=== PATIENT | female | born 1985 | race Caucasian/White ===

== ENCOUNTER 2019-05-19 22:00 | Inpatient (IN) ==
--- NOTE | 2019-05-19 22:52 | History & Physical Report ---
Date of Service May 19, 2019 Assessment & Plan (1) Full-term PROM with onset of labor within 24 hours of rupture: admit, iv, labs. fhts categ 1. will plan pitocin aug or induction if needed if no labor in 4-6 from prom. given initial bp will check additional labs but pt currently denies fitzgerald, visual change, ruq pain, no n/v. History of Present Illness Chief Complaint: leaking fluid, clear and pink, since 715pm today Primary Care Provider: NO PCP 34yo at 39wk jacob presents to L&D with above cc. When she called she noted q 10min ctx and recommended that she come in for evaluation. Now reports more frequent ctx but not painful. Still leaking clear to pink tinged fluid. pnc c/b 1. obesity, efw at [id number]%, then repeat efw at 36wks 46% pnl rh pos, ri, gbs neg obh: sab x 1 gynh: nl paps, no stds pmh: obesity, h/o migraines psh: rotator cuff surgery sh: no tob/etoh/drugs fh: no kevyn anom or mr Allergies Allergy/AdvReac Type Severity Reaction Status Date / Time Latex, Natural Rubber Allergy Rash Verified 05/19/19 22:55 levofloxacin [From Levaquin] Allergy Rash Verified 05/19/19 22:55 promethazine [From Phenergan] Allergy Rash Verified 05/19/19 22:55 Home Medications Home Medications Medication Instructions Recorded Confirmed Type prenat.vits,murali,eee-rtne-yqups 1 tab PO DAILY 10/26/18 05/15/19 History Patient History Social History Preferred Language: French Communication Ability: Effective Beliefs That Will Affect Care: None marital status: Current Living Situation: Spouse Other Information That Helps Us Care for You: No Feels Safe at Home: Yes Safety Concerns: Feels Safe At This Time Smoking Status: Never smoker Hx Alcohol Use: No Hx Substance Use: No Review of Systems All systems reviewed & are unremarkable except as noted in HPI & below no problem reported no abdominal pain, no nausea and no vomiting + problem reported (swelling) no headache(s) Physical Exam Constitutional: WD/WN, vitals as above Respiratory: normal respiratory effort, lungs clear to auscultation Cardiovascular: Rate/Rhythm: regular rate and regular rhythm Gastrointestinal (Abdomen): Percussion/Palpation: abdomen soft (gravid efw 7- 8#); abdomen nontender Musculoskeletal: +2 edema Neurologic: grossly normal Psychiatric: A+Ox3, euthymic affect Genitourinary: Manual OB Exam: + cervical dilation (2), + cervical effacement 80%, + station -1 and + amniotic fluid (Gross SROM) clear and nitrazine positive OB Exam Monitor Tracing: + external FHT monitor used (145 mod variability), + external uterine monitor used (q5), + category I and + normal FHT variability Results & Data Vital Signs (Past 12 Hours) Vital Signs Temp Pulse Resp BP 05/19/19 22:16 88 151/94 H 05/19/19 22:11 99.0 F 88 20 143/88 H 05/19/19 22:10 90 143/88 H Coding Level of Care Code None Diagnoses Full-term PROM with onset of labor within 24 hours of rupture O42.02
[2019-05-19] MEDS ORDERED: OXYTOCIN 30 UNITS/500 ML BAG IV PRN ×2 (23:01)
[2019-05-19 23:20] LABS: Hematocrit (blood only) 39.1 % (37-47); Hemoglobin 13.2 g/dL (12.0-16.0); Mean Corpuscular Hemoglobin 29.9 pg (25-34); Mean Corpuscular Volume 88.7 fL (80-100); Mean Platelet Volume 11.9 fL (7.4-10.4); Platelet Count 161 K/uL (130-400); RDW Coefficient of Variation 13.9 % (11.5-14.5); RDW Standard Deviation 45.2 fL (36.4-46.3); Red Blood Count 4.41 M/uL (4.2-5.4); White Blood Count 11.14 K/uL (4.8-10.8)
[2019-05-19 23:26] LABS: Mean Corpuscular Hgb Conc 33.8 g/dL (32-36)
[2019-05-19 23:38] LABS: Alanine Aminotransferase 18 U/L (12-78); Albumin Level 2.6 gm/dl (3.4-5.0); Aspartate Aminotransferase 19 U/L (15-37); BUN Creatinine Ratio 18.9 (10-20); Bilirubin Direct < 0.1 mg/dl (0-0.2); Blood Urea Nitrogen 17 mg/dl (7-18); Calcium 9.3 mg/dl (8.5-10.1); Carbon Dioxide 23 mmol/L (21-32); Chloride 110 mmol/L (98-107); Creatinine Clr Calc Pharmacy 103.1 ml/min; Est GFR (African American) 99.4; Est GFR (Non-African American) 85.7; Glucose 95 mg/dl (70-99); Potassium 3.8 mmol/L (3.5-5.1); Sodium 140 mmol/L (136-145)
[2019-05-19 23:40] LABS: Albumin Globulin Ratio 0.6 (0.9-2); Alkaline Phosphatase 112 U/L (45-117); Bilirubin,Total 0.2 mg/dl (0.2-1); Globulin 4.2 gm/dl (2.5-4.0); Total Protein 6.8 gm/dl (6.4-8.2)
[2019-05-20] MEDS ORDERED: LABETALOL HCL IV 5 MG/ML 20ML IV STA ×2 (00:47→01:52)
[2019-05-20] MEDS: LACTATED RINGER'S 1,000 ML IV PRN ×2 (00:59→20:59)
[2019-05-20 02:47] LABS: Creatinine Urine Random 65.4 mg/dl; Protein Creatinine Ratio Urine 0.5 (0-0.2); Total Protein Urine Random 32.1 mg/dl (0-11.9)
[2019-05-20] MEDS ORDERED: MAGNESIUM SULFATE 4GM / WTR 100 ML BAG IV ONE (02:54)
[2019-05-20] MEDS: MAGNESIUM SULFATE / WTR 40 GM/1,000 ML BAG IV SCH ×2 (03:28→20:07)
[2019-05-20] MEDS ORDERED: NALOXONE HCL 1 MG in SODIUM CHLORIDE 0.9% 1000ML 1,000 ML IV PRN ×2 (04:36→13:56)
[2019-05-20] MEDS ORDERED: DiphenhydrAMINE HCL 50 MG/ML VIAL IV PRN ×2 (04:36→13:56)
[2019-05-20] MEDS ORDERED: KETOROLAC 30 MG/ML VIAL IV PRN (04:36)
[2019-05-20] MEDS ORDERED: ePHEDrine sulfate 50 MG/ML AMP IV PRN ×2 (04:36→13:56)
[2019-05-20] MEDS ORDERED: NALOXONE HCL 0.08 MG in SYRINGE 1.8 ML IV PRN (04:36)
[2019-05-20] MEDS ORDERED: NALBUPHINE HCL INJ 10 MG/ML AMP IV PRN ×2 (04:36→13:56)
[2019-05-20] MEDS ORDERED: ONDANSETRON INJ 2 MG/ML 2 ML VIAL IV PRN ×2 (04:36→13:56)
[2019-05-20] MEDS ORDERED: NALOXONE HCL 0.4 MG/1 ML VIAL/CARP IV PRN ×2 (04:36→13:56)
[2019-05-20] MEDS ORDERED: MoRPHine SULFATE PF 1 MG/ML 10 ML AMP/VIAL EPI ONE (04:36)
[2019-05-20] MEDS ORDERED: MoRPHine SULFATE 2 MG/ML CARP IV PRN (04:36)
[2019-05-20] MEDS ORDERED: LACTATED RINGER'S 500 ML IV PRN (04:36)
[2019-05-20] MEDS ORDERED: DC INTRASPINAL MORPHINE SCH (04:45)
[2019-05-20] MEDS ORDERED: NO NARCOTICS OR SEDATIVES SCH (04:45)
[2019-05-20] MEDS ORDERED: SODIUM CHLORIDE 0.9% 1000ML 1,000 ML IV SCH (04:45)
--- NOTE | 2019-05-20 08:46 | Labor Progress Brief Note ---
Date of Service May 20, 2019 Subjective Reason For Note: Routine Evaluation denies fitzgerald or visual change, no ruq pain, no epig pain. Assessment & Plan (1) Severe preeclampsia: (2) Full-term PROM with onset of labor within 24 hours of rupture: good cx change. cont magnesium, fhts categ 1. aware Dr. Ballard is taking over care. Physical Exam Constitutional: WD/WN, vitals as above Neurologic: grossly normal. no clonus, dtrs +2 Psychiatric: A+Ox3, euthymic affect Genitourinary: OB Exam Abdomen: + estimated weight (7-8#) Manual OB Exam: + cervical dilation 7 cm, + cervical effacement 100%, + station 0 and + amniotic fluid clear OB Exam Monitor Tracing: + external FHT monitor used (130 mod variability), + external uterine monitor used (q2-3), + category I and + normal FHT variability Results & Data Vital Signs (Past 12 Hours) Vital Signs Temp Pulse Resp BP Pulse Ox 05/20/19 08:39 105 H 98 05/20/19 08:34 104 H 97 05/20/19 08:32 98 H 160/80 H 05/20/19 08:29 99 H 97 05/20/19 08:24 95 H 97 05/20/19 08:19 96 H 97 05/20/19 08:18 100 H 159/83 H 05/20/19 08:14 99 H 97 05/20/19 08:09 108 H 99 05/20/19 08:04 108 H 98 05/20/19 08:03 100 H 168/80 H 05/20/19 08:00 18 05/20/19 07:59 88 98 05/20/19 07:54 102 H 98 05/20/19 07:49 104 H 98 05/20/19 07:48 94 H 148/79 H 05/20/19 07:44 88 98 05/20/19 07:39 102 H 97 05/20/19 07:34 108 H 144/67 H 97 05/20/19 07:29 103 H 97 05/20/19 07:24 97 H 98 05/20/19 07:19 104 H 98 05/20/19 07:18 103 H 174/81 H 05/20/19 07:14 105 H 98 05/20/19 07:09 103 H 97 05/20/19 07:04 105 H 97 05/20/19 07:02 100 H 158/75 H 05/20/19 06:59 97 H 98 05/20/19 06:54 93 H 98 05/20/19 06:49 94 H 97 05/20/19 06:47 100 H 164/82 H 05/20/19 06:44 96 H 97 05/20/19 06:39 100 H 97 05/20/19 06:34 100 H 98 05/20/19 06:32 98 H 166/86 H 05/20/19 06:29 97 H 98 05/20/19 06:24 91 H 97 05/20/19 06:19 98 H 96 05/20/19 06:18 101 H 159/86 H 05/20/19 06:14 96 H 97 05/20/19 06:09 103 H 99 05/20/19 06:04 104 H 97 05/20/19 06:02 96 H 18 167/83 H 05/20/19 05:59 95 H 98 05/20/19 05:54 96 H 97 05/20/19 05:49 107 H 97 05/20/19 05:48 99 H 165/90 H 05/20/19 05:44 94 H 97 05/20/19 05:39 96 H 97 05/20/19 05:34 99 H 99 05/20/19 05:32 93 H 160/74 H 05/20/19 05:29 97 H 99 05/20/19 05:24 103 H 98 05/20/19 05:19 98 H 97 05/20/19 05:17 99 H 157/74 H 05/20/19 05:14 97 H 97 05/20/19 05:09 99 H 97 05/20/19 05:04 89 98 05/20/19 05:02 98.1 F 100 H 18 162/76 H 05/20/19 04:59 104 H 97 05/20/19 04:54 92 H 97 05/20/19 04:49 90 97 05/20/19 04:48 91 H 173/83 H 05/20/19 04:44 94 H 98 05/20/19 04:39 91 H 98 05/20/19 04:34 99 H 98 05/20/19 04:32 100 H 148/72 H 05/20/19 04:29 88 97 05/20/19 04:24 96 H 97 05/20/19 04:19 98 H 97 05/20/19 04:17 97 H 156/74 H 05/20/19 04:14 100 H 98 05/20/19 04:09 95 H 96 05/20/19 04:04 90 98 05/20/19 04:03 103 H 18 160/78 H 05/20/19 03:59 85 98 05/20/19 03:54 87 98 05/20/19 03:49 100 H 97 05/20/19 03:47 96 H 154/76 H 05/20/19 03:44 98 H 98 05/20/19 03:39 97 H 98 05/20/19 03:34 104 H 96 05/20/19 03:33 96 H 156/75 H 05/20/19 03:29 97 H 97 05/20/19 03:24 97 H 98 05/20/19 03:19 97 H 96 05/20/19 03:17 96 H 160/74 H 05/20/19 03:14 87 98 05/20/19 03:09 84 98 05/20/19 03:07 18 05/20/19 03:04 92 H 187/79 H 98 05/20/19 02:59 85 100 05/20/19 02:54 97 H 98 05/20/19 02:49 95 H 98 05/20/19 02:44 79 98 05/20/19 02:42 98.4 F 94 H 18 151/80 H 05/20/19 02:39 80 98 05/20/19 02:38 94 H 161/76 H 05/20/19 02:34 99 H 188/83 H 99 05/20/19 02:29 81 98 05/20/19 02:27 90 149/72 H 05/20/19 02:24 100 H 166/76 H 99 05/20/19 02:19 94 H 99 05/20/19 02:17 99 H 146/77 H 05/20/19 02:14 80 99 05/20/19 02:09 96 H 178/77 H 99 05/20/19 02:04 91 H 100 05/20/19 01:59 88 176/84 H 100 05/20/19 01:58 80 199/98 H 05/20/19 01:54 80 100 05/20/19 01:52 81 169/77 H 05/20/19 01:49 82 100 05/20/19 01:48 90 175/81 H 05/20/19 01:44 77 100 05/20/19 01:42 92 H 168/80 H 05/20/19 01:40 87 176/89 H 05/20/19 01:39 87 100 05/20/19 01:28 86 179/92 H 05/20/19 01:25 89 100 05/20/19 01:23 88 165/83 H 05/20/19 01:20 80 100 05/20/19 01:18 81 143/83 H 05/20/19 01:15 81 100 05/20/19 01:13 84 152/73 H 05/20/19 01:10 82 100 05/20/19 01:07 93 H 156/80 H 05/20/19 01:05 85 100 05/20/19 01:02 84 168/87 H 05/20/19 01:00 79 100 05/20/19 00:58 98.1 F 79 18 181/88 H 05/20/19 00:55 88 100 05/20/19 00:52 82 169/84 H 05/20/19 00:46 83 174/88 H 05/20/19 00:41 86 181/99 H 05/19/19 23:30 85 159/81 H 05/19/19 23:29 98.6 F 75 18 168/89 H 05/19/19 22:16 88 151/94 H 05/19/19 22:11 99.0 F 88 20 143/88 H 05/19/19 22:10 90 143/88 H Coding Level of Care Code None Diagnoses Severe preeclampsia O14.10 Full-term PROM with onset of labor within 24 hours of rupture O42.02
--- NOTE | 2019-05-20 10:43 | Communication Note ---
Date of Service: May 20, 2019 Care discussed with Alma Bolaños, RN twice in last 30 min. Cervix unchanged on her exam so will now start pitocin. Patient agreeable. BP noted to be significantly elevated, and I asked that it be rechecked; now improved to below where treatment would be indicated, so no further labetalol at this time. Continue BP and symptom monitoring, magnesium, add pitocin for augmentation of labor, and continue without epidural at patient request.
--- NOTE | 2019-05-20 13:01 | Labor Progress Brief Note ---
Date of Service May 20, 2019 Subjective Tolerating contractions with breathing techniques. Continues to decline epidural. No DRUMMOND, RUQ pain or Vis changes, no worsening edema. Assessment & Plan (1) Severe preeclampsia: Patient, FOB and patient's mom counseled on findings of no cervical change and a displaceable presenting part. Expressed my concern for CPD, and reminded that I cannot guarantee vaginal delivery nor predict time of delivery. Discussed next steps are to continue to increase pitocin to achieve Q2min contractions, and if still no change in cervix, use IUPC to allow titration for adequate strength of contractions. If still no change after several hours of adequacy, would be recommended for . Reviewed that this may all take significant amount of time. Discussed that status is currently reassu ring, which allows for us to take the steps above, and that if status changes so would recommendations. Offered epidural and patient declines even with this understanding that there may be a long time yet of induction. Trimester: third trimester Qualified Code(s): O14.13 - Severe pre-eclampsia, third trimester Physical Exam Physical Exam: FHT Cat 1 [place] Q3-5 irreg Pit @ 5 Cervix 7/100/0 head displaceable upwards BP reviewed and ranges high-normal to severe HTN; I note the new 171/81 was taken during a contraction. Results & Data Vital Signs (Past 12 Hours) Vital Signs Temp Pulse Resp BP Pulse Ox 05/20/19 12:49 98 H 97 05/20/19 12:44 95 H 98 05/20/19 12:39 114 H 98 05/20/19 12:34 107 H 98 05/20/19 12:29 102 H 96 05/20/19 12:24 106 H 98 05/20/19 12:19 106 H 98 05/20/19 12:16 104 H 171/81 H 05/20/19 12:14 93 H 97 05/20/19 12:09 98 H 97 05/20/19 12:04 108 H 100 05/20/19 11:59 105 H 98 05/20/19 11:54 102 H 100 05/20/19 11:49 101 H 98 05/20/19 11:44 103 H 144/79 H 96 05/20/19 11:39 104 H 98 05/20/19 11:34 103 H 98 05/20/19 11:29 108 H 97 05/20/19 11:24 108 H 98 05/20/19 11:19 103 H 98 05/20/19 11:15 107 H 142/67 H 05/20/19 11:14 103 H 97 05/20/19 11:09 108 H 97 05/20/19 11:04 106 H 98 05/20/19 11:00 98.2 F 20 05/20/19 10:59 102 H 96 05/20/19 10:54 101 H 96 05/20/19 10:49 110 H 97 05/20/19 10:44 100 H 132/65 97 05/20/19 10:39 104 H 97 05/20/19 10:34 102 H 97 05/20/19 10:33 103 H 149/70 H 05/20/19 10:29 102 H 97 05/20/19 10:24 105 H 97 05/20/19 10:19 106 H 97 05/20/19 10:14 107 H 98 05/20/19 10:09 99 H 97 05/20/19 10:04 108 H 98 05/20/19 10:03 106 H 181/87 H 05/20/19 09:59 109 H 98 05/20/19 09:54 99 H 98 05/20/19 09:49 109 H 97 05/20/19 09:48 103 H 174/91 H 05/20/19 09:44 102 H 98 05/20/19 09:39 105 H 98 05/20/19 09:34 108 H 98 05/20/19 09:32 103 H 167/79 H 05/20/19 09:29 101 H 98 05/20/19 09:24 90 99 05/20/19 09:19 94 H 98 05/20/19 09:17 100 H 157/77 H 05/20/19 09:14 106 H 98 05/20/19 09:09 110 H 97 05/20/19 09:04 98 H 99 05/20/19 09:02 95 H 152/75 H 05/20/19 09:00 20 05/20/19 08:59 92 H 98 05/20/19 08:54 100 H 97 05/20/19 08:49 101 H 98 05/20/19 08:48 105 H 149/77 H 05/20/19 08:44 103 H 98 05/20/19 08:39 105 H 98 05/20/19 08:34 104 H 97 05/20/19 08:32 98 H 160/80 H 05/20/19 08:29 99 H 97 05/20/19 08:24 95 H 97 05/20/19 08:19 96 H 97 05/20/19 08:18 100 H 159/83 H 05/20/19 08:14 99 H 97 05/20/19 08:09 108 H 99 05/20/19 08:04 108 H 98 05/20/19 08:03 100 H 168/80 H 05/20/19 08:00 18 05/20/19 07:59 88 98 05/20/19 07:54 102 H 98 05/20/19 07:49 104 H 98 05/20/19 07:48 94 H 148/79 H 05/20/19 07:44 88 98 05/20/19 07:39 102 H 97 05/20/19 07:34 108 H 144/67 H 97 05/20/19 07:29 103 H 97 05/20/19 07:24 97 H 98 05/20/19 07:19 104 H 98 05/20/19 07:18 103 H 174/81 H 05/20/19 07:14 105 H 98 05/20/19 07:09 103 H 97 05/20/19 07:04 105 H 97 05/20/19 07:02 100 H 158/75 H 05/20/19 06:59 97 H 98 05/20/19 06:54 93 H 98 05/20/19 06:49 94 H 97 05/20/19 06:47 100 H 164/82 H 05/20/19 06:44 96 H 97 05/20/19 06:39 100 H 97 05/20/19 06:34 100 H 98 05/20/19 06:32 98 H 166/86 H 05/20/19 06:29 97 H 98 05/20/19 06:24 91 H 97 05/20/19 06:19 98 H 96 05/20/19 06:18 101 H 159/86 H 05/20/19 06:14 96 H 97 05/20/19 06:09 103 H 99 05/20/19 06:04 104 H 97 05/20/19 06:02 96 H 18 167/83 H 05/20/19 05:59 95 H 98 05/20/19 05:54 96 H 97 05/20/19 05:49 107 H 97 05/20/19 05:48 99 H 165/90 H 05/20/19 05:44 94 H 97 05/20/19 05:39 96 H 97 05/20/19 05:34 99 H 99 05/20/19 05:32 93 H 160/74 H 05/20/19 05:29 97 H 99 05/20/19 05:24 103 H 98 05/20/19 05:19 98 H 97 05/20/19 05:17 99 H 157/74 H 05/20/19 05:14 97 H 97 05/20/19 05:09 99 H 97 05/20/19 05:04 89 98 05/20/19 05:02 98.1 F 100 H 18 162/76 H 05/20/19 04:59 104 H 97 05/20/19 04:54 92 H 97 05/20/19 04:49 90 97 05/20/19 04:48 91 H 173/83 H 05/20/19 04:44 94 H 98 05/20/19 04:39 91 H 98 05/20/19 04:34 99 H 98 05/20/19 04:32 100 H 148/72 H 05/20/19 04:29 88 97 05/20/19 04:24 96 H 97 05/20/19 04:19 98 H 97 05/20/19 04:17 97 H 156/74 H 05/20/19 04:14 100 H 98 05/20/19 04:09 95 H 96 05/20/19 04:04 90 98 05/20/19 04:03 103 H 18 160/78 H 05/20/19 03:59 85 98 05/20/19 03:54 87 98 05/20/19 03:49 100 H 97 05/20/19 03:47 96 H 154/76 H 05/20/19 03:44 98 H 98 05/20/19 03:39 97 H 98 05/20/19 03:34 104 H 96 05/20/19 03:33 96 H 156/75 H 05/20/19 03:29 97 H 97 05/20/19 03:24 97 H 98 05/20/19 03:19 97 H 96 05/20/19 03:17 96 H 160/74 H 05/20/19 03:14 87 98 05/20/19 03:09 84 98 05/20/19 03:07 18 05/20/19 03:04 92 H 187/79 H 98 05/20/19 02:59 85 100 05/20/19 02:54 97 H 98 05/20/19 02:49 95 H 98 05/20/19 02:44 79 98 05/20/19 02:42 98.4 F 94 H 18 151/80 H 05/20/19 02:39 80 98 05/20/19 02:38 94 H 161/76 H 05/20/19 02:34 99 H 188/83 H 99 05/20/19 02:29 81 98 05/20/19 02:27 90 149/72 H 05/20/19 02:24 100 H 166/76 H 99 05/20/19 02:19 94 H 99 05/20/19 02:17 99 H 146/77 H 05/20/19 02:14 80 99 05/20/19 02:09 96 H 178/77 H 99 05/20/19 02:04 91 H 100 05/20/19 01:59 88 176/84 H 100 05/20/19 01:58 80 199/98 H 05/20/19 01:54 80 100 05/20/19 01:52 81 169/77 H 05/20/19 01:49 82 100 05/20/19 01:48 90 175/81 H 05/20/19 01:44 77 100 05/20/19 01:42 92 H 168/80 H 05/20/19 01:40 87 176/89 H 05/20/19 01:39 87 100 05/20/19 01:28 86 179/92 H 05/20/19 01:25 89 100 05/20/19 01:23 88 165/83 H 05/20/19 01:20 80 100 05/20/19 01:18 81 143/83 H 05/20/19 01:15 81 100 05/20/19 01:13 84 152/73 H 05/20/19 01:10 82 100 05/20/19 01:07 93 H 156/80 H 05/20/19 01:05 85 100 05/20/19 01:02 84 168/87 H 05/20/19 01:00 79 100 05/20/19 00:58 98.1 F 79 18 181/88 H Laboratory Results Laboratory Results - last 24 hr 05/19/19 05/19/19 05/20/19 23:10 23:10 02:00 WBC 11.14 H RBC 4.41 Hgb 13.2 Hct 39.1 MCV 88.7 MCH 29.9 MCHC 33.8 RDW Std Deviation 45.2 RDW Coeff of Vickie 13.9 Plt Count 161 MPV 11.9 H Sodium 140 Potassium 3.8 Chloride 110 H Carbon Dioxide 23 Anion Gap 7.0 BUN 17 Creatinine 0.88 Est Cr Clr Drug Dosing 103.1 Est GFR ( Amer) 99.4 Est GFR (Non-Af Amer) 85.7 BUN/Creatinine Ratio 18.9 Glucose 95 Calcium 9.3 Total Bilirubin 0.2 Direct Bilirubin < 0.1 AST 19 ALT 18 Alkaline Phosphatase 112 Total Protein 6.8 Albumin 2.6 L Globulin 4.2 H Albumin/Globulin Ratio 0.6 L Ur Random Creatinine 65.4 U Random Total Protein 32.1 H Protein/Creatinin Ratio 0.5 H Coding Level of Care Code None Diagnoses Severe preeclampsia O14.13 Trimester: third trimester
[2019-05-20] MEDS ORDERED: ACETAMINOPHEN 650 MG SUPP PR STA ×2 (13:14→18:23)
--- NOTE | 2019-05-20 13:15 | Communication Note ---
Date of Service: May 20, 2019 Notified by ELIZABETH Bolaños that patient now has c/o mild headache that is new. Ordered 650mg tylenol, with rectal route to avoid PO solids in case we end up with a in the near future. She is also now interested in epidural which is OK to go ahead and provide.
[2019-05-20] MEDS ORDERED: fentaNYL 2MCG/ML ROPIV 1.25MG/ML 100 ML BAG EPI ONE (13:19)
[2019-05-20] MEDS ORDERED: BUPIVACAINE 0.25% 30 ML VIAL ONE (13:19)
[2019-05-20] MEDS ORDERED: fentaNYL citrate 100 MCG/2 ML VIAL ONE ×2 (13:19→20:50)
[2019-05-20] MEDS ORDERED: ePHEDrine sulfate 50 MG/ML AMP ONE (13:19)
--- NOTE | 2019-05-20 13:55 | Anesthesiology Consultation ---
Date of Service May 20, 2019 Assessment & Plan (1) Encounter for pre-operative examination: Chart Review Chart Review: Acceptable Risk for Labor Epidural Consults Requested none ASA ASA3 Proposed Anesthesia Anesthesia Type: Labor Epidural Risk / Benefits Reviewed With: PT / POA / Parent / Guardian, Accepts Plan and Informed Consent Obtained History Height/Weight Height: 5 ft 2 in Weight: 106.141 kg Allergies Allergy/AdvReac Type Severity Reaction Status Date / Time Latex, Natural Rubber Allergy Rash Verified 05/19/19 22:55 levofloxacin [From Levaquin] Allergy Rash Verified 05/19/19 22:55 promethazine [From Phenergan] Allergy Rash Verified 05/19/19 22:55 Medications Home Medications Medication Instructions Recorded Confirmed Last Taken prenat.vits,murali,joq-dvor-vahrw 1 tab PO DAILY 10/26/18 05/19/19 05/18/19 08:00 Active Medications Generic Name Dose Route Start Last Admin Trade Name Freq PRN Reason Stop Dose Admin Lactated Ringer's 1,000 mls @ 125 mls/hr 05/19/19 23:01 05/20/19 07:06 Lr IV 05/21/19 23:00 75 mls/hr .Q8H PRN Infusion L&D Protocol Protocol Oxytocin 30 units in 500 mls @ 7 mls/hr 05/19/19 23:01 05/20/19 13:33 Pitocin IV 05/21/19 23:00 0.54 units/hr .Q24H PRN 9 mls/hr Labor Induction/Augmentation Titration Protocol 0.42 UNITS/HR Magnesium Sulfate 40 gm in 1,000 mls @ 50 mls/hr 05/20/19 03:00 05/20/19 07:06 Magnesium Sulfate / Wtr IV 06/19/19 02:59 50 mls/hr .Q20H NIGEL Infusion Past Medical History Medical History History of anemia History of miscarriage, currently History of varicella Hx of migraines Exercise / Class Metabolic Activity II 4-5 Yardwork/Stairs/Walk up hill Past Family History Family History Grandmother (Maternal) Hypertension Breast cancer Grandfather (Maternal) Hypertension Grandmother (Paternal) Breast cancer Past Surgical History Surgical History S/P rotator cuff repair S/P tonsillectomy Past Anesthesia History No Hx of Anesthesia Complications and No Family Hx of Anesthesia Complications History of PONV No Hx of PONV and No Hx of Motion Sickness Social History Smoking Status: Never smoker Hx Alcohol Use: No Hx Substance Use: No substance use type: does not use Physical Exam Vital Signs Last Vital Signs Temp 98.2 F 05/20/19 11:00 Pulse 114 H 05/20/19 13:49 Resp 20 05/20/19 11:00 BP 145/80 H 05/20/19 13:44 Pulse Ox 98 05/20/19 13:49 ENMT Mouth: no dentition abnormality Thyromental Distance: > or= 3.5 Finger Breadths Mallampati Class: II Neck normal visual inspection Respiratory normal respiratory effort Auscultation: lungs clear to auscultation bilaterally Cardiovascular Rate/Rhythm: regular rate and regular rhythm Testing Laboratory Results 05/19/19 23:10 05/19/19 23:10
[2019-05-20] MEDS ORDERED: fentaNYL 2MCG/ML ROPIV 1.25MG/ML 100 ML BAG EPI PRN (13:56)
--- NOTE | 2019-05-20 16:44 | Labor Progress Brief Note ---
Date of Service May 20, 2019 Subjective Comfortable with epidural Physical Exam Physical Exam: FHT Cat 2 with reassuring baseline and variability, occ variable / late decels with contractions. These were noted beginning after epidural when average BP dropped significantly. However, +accels and +scalp stim response with accels during cervical exam. [place] irregular and coupled. Cvx 9/100/0 with some molding now reaching to +1 Bloody show noted. Pit just increased to 15. Results & Data Vital Signs (Past 12 Hours) Vital Signs Temp Pulse Resp BP Pulse Ox 05/20/19 16:39 104 H 96 05/20/19 16:34 109 H 98 05/20/19 16:29 98 H 110/53 L 96 05/20/19 16:24 98 H 96 05/20/19 16:19 98 H 96 05/20/19 16:14 103 H 112/57 L 97 05/20/19 16:09 103 H 98 05/20/19 16:04 102 H 98 05/20/19 15:59 105 H 16 110/55 L 98 05/20/19 15:54 102 H 96 05/20/19 15:49 101 H 96 05/20/19 15:45 102 H 115/54 L 05/20/19 15:44 100 H 98 05/20/19 15:39 107 H 98 05/20/19 15:34 104 H 98 05/20/19 15:29 107 H 134/63 97 05/20/19 15:24 107 H 98 05/20/19 15:19 103 H 98 05/20/19 15:14 99 H 133/63 98 05/20/19 15:09 101 H 98 05/20/19 15:04 101 H 98 05/20/19 15:02 98.8 F 103 H 16 82 L 05/20/19 14:59 102 H 130/59 L 98 05/20/19 14:55 102 H 131/60 05/20/19 14:54 100 H 99 05/20/19 14:49 102 H 133/60 99 05/20/19 14:44 105 H 125/58 L 99 05/20/19 14:39 107 H 121/58 L 99 05/20/19 14:34 106 H 98 05/20/19 14:33 110 H 119/57 L 05/20/19 14:31 110 H 100/57 L 02/22/20 14:29 110 H 113/56 L 98 05/20/19 14:27 112 H 105/54 L 05/20/19 14:25 111 H 103/54 L 05/20/19 14:24 112 H 98 05/20/19 14:23 117 H 109/54 L 05/20/19 14:20 117 H 119/55 L 05/20/19 14:19 116 H 95/48 L 97 05/20/19 14:17 118 H 99/61 L 05/20/19 14:15 111 H 157/73 H 05/20/19 14:14 109 H 98 05/20/19 14:13 112 H 141/65 H 05/20/19 14:09 116 H 99 05/20/19 14:04 101 H 99 05/20/19 14:03 110 H 173/79 H 05/20/19 13:59 110 H 98 05/20/19 13:54 96 H 98 05/20/19 13:49 114 H 98 05/20/19 13:44 108 H 145/80 H 96 05/20/19 13:39 103 H 98 05/20/19 13:34 102 H 98 05/20/19 13:29 108 H 97 05/20/19 13:24 109 H 99 05/20/19 13:19 95 H 98 05/20/19 13:16 108 H 163/81 H 05/20/19 13:14 107 H 97 05/20/19 13:09 108 H 97 05/20/19 13:04 100 H 97 05/20/19 12:59 111 H 97 05/20/19 12:54 113 H 96 05/20/19 12:49 98 H 97 05/20/19 12:44 95 H 98 05/20/19 12:39 114 H 98 05/20/19 12:34 107 H 98 05/20/19 12:29 102 H 96 05/20/19 12:24 106 H 98 05/20/19 12:19 106 H 98 05/20/19 12:16 104 H 171/81 H 05/20/19 12:14 93 H 97 05/20/19 12:09 98 H 97 05/20/19 12:04 108 H 100 05/20/19 11:59 105 H 98 05/20/19 11:54 102 H 100 05/20/19 11:49 101 H 98 05/20/19 11:44 103 H 144/79 H 96 05/20/19 11:39 104 H 98 05/20/19 11:34 103 H 98 05/20/19 11:29 108 H 97 05/20/19 11:24 108 H 98 05/20/19 11:19 103 H 98 05/20/19 11:15 107 H 142/67 H 05/20/19 11:14 103 H 97 05/20/19 11:09 108 H 97 05/20/19 11:04 106 H 98 05/20/19 11:00 98.2 F 20 05/20/19 10:59 102 H 96 05/20/19 10:54 101 H 96 05/20/19 10:49 110 H 97 05/20/19 10:44 100 H 132/65 97 05/20/19 10:39 104 H 97 05/20/19 10:34 102 H 97 05/20/19 10:33 103 H 149/70 H 05/20/19 10:29 102 H 97 05/20/19 10:24 105 H 97 05/20/19 10:19 106 H 97 05/20/19 10:14 107 H 98 05/20/19 10:09 99 H 97 05/20/19 10:04 108 H 98 05/20/19 10:03 106 H 181/87 H 05/20/19 09:59 109 H 98 05/20/19 09:54 99 H 98 05/20/19 09:49 109 H 97 05/20/19 09:48 103 H 174/91 H 05/20/19 09:44 102 H 98 05/20/19 09:39 105 H 98 05/20/19 09:34 108 H 98 05/20/19 09:32 103 H 167/79 H 05/20/19 09:29 101 H 98 05/20/19 09:24 90 99 05/20/19 09:19 94 H 98 05/20/19 09:17 100 H 157/77 H 05/20/19 09:14 106 H 98 05/20/19 09:09 110 H 97 05/20/19 09:04 98 H 99 05/20/19 09:02 95 H 152/75 H 05/20/19 09:00 20 05/20/19 08:59 92 H 98 05/20/19 08:54 100 H 97 05/20/19 08:49 101 H 98 05/20/19 08:48 105 H 149/77 H 05/20/19 08:44 103 H 98 05/20/19 08:39 105 H 98 05/20/19 08:34 104 H 97 05/20/19 08:32 98 H 160/80 H 05/20/19 08:29 99 H 97 05/20/19 08:24 95 H 97 05/20/19 08:19 96 H 97 05/20/19 08:18 100 H 159/83 H 05/20/19 08:14 99 H 97 05/20/19 08:09 108 H 99 05/20/19 08:04 108 H 98 05/20/19 08:03 100 H 168/80 H 05/20/19 08:00 18 05/20/19 07:59 88 98 05/20/19 07:54 102 H 98 05/20/19 07:49 104 H 98 05/20/19 07:48 94 H 148/79 H 05/20/19 07:44 88 98 05/20/19 07:39 102 H 97 05/20/19 07:34 108 H 144/67 H 97 05/20/19 07:29 103 H 97 05/20/19 07:24 97 H 98 05/20/19 07:19 104 H 98 05/20/19 07:18 103 H 174/81 H 05/20/19 07:14 105 H 98 05/20/19 07:09 103 H 97 05/20/19 07:04 105 H 97 05/20/19 07:02 100 H 158/75 H 05/20/19 06:59 97 H 98 05/20/19 06:54 93 H 98 05/20/19 06:49 94 H 97 05/20/19 06:47 100 H 164/82 H 05/20/19 06:44 96 H 97 05/20/19 06:39 100 H 97 05/20/19 06:34 100 H 98 05/20/19 06:32 98 H 166/86 H 05/20/19 06:29 97 H 98 05/20/19 06:24 91 H 97 05/20/19 06:19 98 H 96 05/20/19 06:18 101 H 159/86 H 05/20/19 06:14 96 H 97 05/20/19 06:09 103 H 99 05/20/19 06:04 104 H 97 05/20/19 06:02 96 H 18 167/83 H 05/20/19 05:59 95 H 98 05/20/19 05:54 96 H 97 05/20/19 05:49 107 H 97 05/20/19 05:48 99 H 165/90 H 05/20/19 05:44 94 H 97 05/20/19 05:39 96 H 97 05/20/19 05:34 99 H 99 05/20/19 05:32 93 H 160/74 H 05/20/19 05:29 97 H 99 05/20/19 05:24 103 H 98 05/20/19 05:19 98 H 97 05/20/19 05:17 99 H 157/74 H 05/20/19 05:14 97 H 97 05/20/19 05:09 99 H 97 05/20/19 05:04 89 98 05/20/19 05:02 98.1 F 100 H 18 162/76 H 05/20/19 04:59 104 H 97 05/20/19 04:54 92 H 97 05/20/19 04:49 90 97 05/20/19 04:48 91 H 173/83 H 05/20/19 04:44 94 H 98 Supervising Physician Co-Signing Physician Notes Discussed there is some cervical change. molding present. FHT monitored closely, with reassuring scalp stim obtained. Discussed with patient and will continue augmentation and attempt towards vaginal delivery at this time. Coding Level of Care Code None
--- NOTE | 2019-05-20 18:42 | Labor Progress Brief Note ---
Date of Service May 20, 2019 Subjective Some pressure during contractions Assessment & Plan (1) Severe preeclampsia: Continue Mag. Mild DRUMMOND recurred and tylenol given again. Trimester: third trimester Qualified Code(s): O14.13 - Severe pre-eclampsia, third trimester (2) Full-term PROM with onset of labor within 24 hours of rupture: Begin second stage Physical Exam Physical Exam: 10/100/+1 FHT Cat 2 with normal baseline, mod monika, +acc + variable decels with ctx [place] Q3-4 Pit @ 19 Test push done with and moved baby well Results & Data Vital Signs (Past 12 Hours) Vital Signs Temp Pulse Resp BP Pulse Ox 05/20/19 18:34 102 H 98 05/20/19 18:30 103 H 160/77 H 05/20/19 18:29 104 H 98 05/20/19 18:24 103 H 98 05/20/19 18:19 101 H 98 05/20/19 18:14 101 H 141/67 H 99 05/20/19 18:09 110 H 99 05/20/19 18:04 109 H 99 05/20/19 17:59 105 H 18 140/65 99 05/20/19 17:54 109 H 99 05/20/19 17:49 110 H 99 05/20/19 17:44 103 H 139/65 98 05/20/19 17:39 109 H 98 05/20/19 17:34 102 H 98 05/20/19 17:31 104 H 148/66 H 05/20/19 17:29 98.1 F 108 H 16 99 05/20/19 17:24 105 H 99 05/20/19 17:19 106 H 96 05/20/19 17:15 101 H 128/60 05/20/19 17:14 102 H 96 05/20/19 17:09 103 H 96 05/20/19 17:04 105 H 96 05/20/19 17:01 100 H 122/58 L 05/20/19 17:00 20 05/20/19 16:59 99 H 97 05/20/19 16:54 99 H 96 05/20/19 16:49 97 H 97 05/20/19 16:44 101 H 115/56 L 97 05/20/19 16:39 104 H 96 05/20/19 16:34 109 H 98 05/20/19 16:29 98 H 110/53 L 96 05/20/19 16:24 98 H 96 05/20/19 16:19 98 H 96 05/20/19 16:14 103 H 112/57 L 97 05/20/19 16:09 103 H 98 05/20/19 16:04 102 H 98 05/20/19 16:01 16 05/20/19 15:59 105 H 16 110/55 L 98 05/20/19 15:54 102 H 96 05/20/19 15:49 101 H 96 05/20/19 15:45 102 H 115/54 L 05/20/19 15:44 100 H 98 05/20/19 15:39 107 H 98 05/20/19 15:34 104 H 98 05/20/19 15:29 107 H 134/63 97 05/20/19 15:24 107 H 98 05/20/19 15:19 103 H 98 05/20/19 15:14 99 H 133/63 98 05/20/19 15:09 101 H 98 05/20/19 15:04 101 H 98 05/20/19 15:02 98.8 F 103 H 16 82 L 05/20/19 14:59 102 H 130/59 L 98 05/20/19 14:55 102 H 131/60 05/20/19 14:54 100 H 99 05/20/19 14:49 102 H 133/60 99 05/20/19 14:44 105 H 125/58 L 99 05/20/19 14:39 107 H 121/58 L 99 05/20/19 14:34 106 H 98 05/20/19 14:33 110 H 119/57 L 05/20/19 14:31 110 H 100/57 L 05/20/19 14:29 110 H 113/56 L 98 05/20/19 14:27 112 H 105/54 L 05/20/19 14:25 111 H 103/54 L 05/20/19 14:24 112 H 98 05/20/19 14:23 117 H 109/54 L 05/20/19 14:20 117 H 119/55 L 05/20/19 14:19 116 H 95/48 L 97 05/20/19 14:17 118 H 99/61 L 05/20/19 14:15 111 H 157/73 H 05/20/19 14:14 109 H 98 05/20/19 14:13 112 H 141/65 H 05/20/19 14:09 116 H 99 05/20/19 14:04 101 H 99 05/20/19 14:03 110 H 173/79 H 05/20/19 13:59 110 H 98 05/20/19 13:54 96 H 98 05/20/19 13:49 114 H 98 05/20/19 13:44 108 H 145/80 H 96 05/20/19 13:39 103 H 98 05/20/19 13:34 102 H 98 05/20/19 13:29 108 H 97 05/20/19 13:24 109 H 99 05/20/19 13:19 95 H 98 05/20/19 13:16 108 H 163/81 H 05/20/19 13:14 107 H 97 05/20/19 13:09 108 H 97 05/20/19 13:04 100 H 97 05/20/19 12:59 111 H 97 05/20/19 12:54 113 H 96 05/20/19 12:49 98 H 97 05/20/19 12:44 95 H 98 05/20/19 12:39 114 H 98 05/20/19 12:34 107 H 98 05/20/19 12:29 102 H 96 05/20/19 12:24 106 H 98 05/20/19 12:19 106 H 98 05/20/19 12:16 104 H 171/81 H 05/20/19 12:14 93 H 97 05/20/19 12:09 98 H 97 05/20/19 12:04 108 H 100 05/20/19 11:59 105 H 98 05/20/19 11:54 102 H 100 05/20/19 11:49 101 H 98 05/20/19 11:44 103 H 144/79 H 96 05/20/19 11:39 104 H 98 05/20/19 11:34 103 H 98 05/20/19 11:29 108 H 97 05/20/19 11:24 108 H 98 05/20/19 11:19 103 H 98 05/20/19 11:15 107 H 142/67 H 05/20/19 11:14 103 H 97 05/20/19 11:09 108 H 97 05/20/19 11:04 106 H 98 05/20/19 11:00 98.2 F 20 05/20/19 10:59 102 H 96 05/20/19 10:54 101 H 96 05/20/19 10:49 110 H 97 05/20/19 10:44 100 H 132/65 97 05/20/19 10:39 104 H 97 05/20/19 10:34 102 H 97 05/20/19 10:33 103 H 149/70 H 05/20/19 10:29 102 H 97 05/20/19 10:24 105 H 97 05/20/19 10:19 106 H 97 05/20/19 10:14 107 H 98 05/20/19 10:09 99 H 97 05/20/19 10:04 108 H 98 05/20/19 10:03 106 H 181/87 H 05/20/19 09:59 109 H 98 05/20/19 09:54 99 H 98 05/20/19 09:49 109 H 97 05/20/19 09:48 103 H 174/91 H 05/20/19 09:44 102 H 98 05/20/19 09:39 105 H 98 05/20/19 09:34 108 H 98 05/20/19 09:32 103 H 167/79 H 05/20/19 09:29 101 H 98 05/20/19 09:24 90 99 05/20/19 09:19 94 H 98 05/20/19 09:17 100 H 157/77 H 05/20/19 09:14 106 H 98 05/20/19 09:09 110 H 97 05/20/19 09:04 98 H 99 05/20/19 09:02 95 H 152/75 H 05/20/19 09:00 20 05/20/19 08:59 92 H 98 05/20/19 08:54 100 H 97 05/20/19 08:49 101 H 98 05/20/19 08:48 105 H 149/77 H 05/20/19 08:44 103 H 98 05/20/19 08:39 105 H 98 05/20/19 08:34 104 H 97 05/20/19 08:32 98 H 160/80 H 05/20/19 08:29 99 H 97 05/20/19 08:24 95 H 97 05/20/19 08:19 96 H 97 05/20/19 08:18 100 H 159/83 H 05/20/19 08:14 99 H 97 05/20/19 08:09 108 H 99 05/20/19 08:04 108 H 98 05/20/19 08:03 100 H 168/80 H 05/20/19 08:00 18 05/20/19 07:59 88 98 05/20/19 07:54 102 H 98 05/20/19 07:49 104 H 98 05/20/19 07:48 94 H 148/79 H 05/20/19 07:44 88 98 05/20/19 07:39 102 H 97 05/20/19 07:34 108 H 144/67 H 97 05/20/19 07:29 103 H 97 05/20/19 07:24 97 H 98 05/20/19 07:19 104 H 98 05/20/19 07:18 103 H 174/81 H 05/20/19 07:14 105 H 98 05/20/19 07:09 103 H 97 05/20/19 07:04 105 H 97 05/20/19 07:02 100 H 158/75 H 05/20/19 06:59 97 H 98 05/20/19 06:54 93 H 98 05/20/19 06:49 94 H 97 05/20/19 06:47 100 H 164/82 H 05/20/19 06:44 96 H 97 Coding Level of Care Code None Diagnoses Severe preeclampsia O14.13 Trimester: third trimester Full-term PROM with onset of labor within 24 hours of rupture O42.02
--- NOTE | 2019-05-20 21:15 | Delivery Summary ---
Vaginal Delivery Summary Date of Service May 20, 2019 Vaginal Delivery Summary DIAGNOSES: 1. Rm intrauterine at 39w1d gestation. 2. SROM, Spontaneous onset of labor with eventual augmentation needed 3. Group B Streptococcus Neg. 4. Severe preeclampsia, on magnesium therapy PROCEDURE: Spontaneous vaginal delivery and repair of second degree laceration. SURGEON: Linnette Ballard MD. STUD [employer]: None. ESTIMATED BLOOD LOSS: 450 mL. COMPLICATIONS: None. PLACENTA: Spontaneous and intact with a 3-vessel cord. DISPOSITION: Stable to labor and delivery. DESCRIPTION: The patient pushed well and brought the head to in OA position. The infant's head was allowed to deliver with contraction force and no further active pushing, with the perineum protected during this time. The shoulders delivered easily with a maternal pushing effort. There was a loose nuchal cord. The shoulders and body delivered without any difficulty, and the was placed on the maternal abdomen. It was vigorous and moving all extremities, and making respiratory efforts. The cord was doubly clamped by the MD and then cut by the FOB. The placenta delivered spontaneously and was noted to be intact and with a 3VC. The cervix, vagina and perineum were examined and were found to have a second degree laceration which was repaired in the usual manner with vicryl suture, including a crown stitch to rebuild the perineal body. The fundus was firm and lochia minimal immediately after delivery.
[2019-05-20] MEDS ORDERED: BENZOCAINE 20% AER SPR 82.5 GM CAN EXT PRN (21:28)
[2019-05-20] MEDS ORDERED: bisacodyL 10 MG SUPP PR PRN (21:28)
[2019-05-20] MEDS ORDERED: SUPERCREAM 0.870% 15 GM JAR EXT PRN (21:28)
[2019-05-20] MEDS ORDERED: HYDROCORTISONE ACETATE 25 MG SUPP PR PRN (21:28)
[2019-05-20] MEDS ORDERED: OXYCODONE/ACETAMINOPHEN 5mg/325mg TAB PO PRN (21:28)
[2019-05-20] MEDS ORDERED: ACETAMINOPHEN 325 MG TAB PO PRN (21:28)
[2019-05-20] MEDS ORDERED: OXYTOCIN 30 UNITS/500 ML BAG IV PRN (21:28)
[2019-05-20] MEDS ORDERED: fentaNYL citrate 100 MCG/2 ML VIAL IV STA (21:29)
[2019-05-20] MEDS ORDERED: ONDANSETRON INJ 2 MG/ML 2 ML VIAL ONE (22:17)
[2019-05-20] MEDS ORDERED: ondansetron HCL 8 MG in DEXTROSE 5% 50 ML IV ONE (22:18)
[2019-05-21] MEDS: IBUPROFEN 600 MG TAB PO PRN ×4 (02:10→21:04)
[2019-05-21 05:45] LABS: Basophils # (auto) 0.02 K/uL (0-0.2); Basophils % (auto) 0.1 %; Eosinophils # (auto) 0.01 K/uL (0-0.5); Eosinophils % (auto) 0.1 %; Hematocrit (blood only) 30.1 % (37-47); Hemoglobin 9.9 g/dL (12.0-16.0); Immature Granulocytes # (auto) 0.18 K/uL (0.00-0.02); Lymphocytes # (auto) 1.47 K/uL (1.2-3.4); Lymphocytes % (auto) 8.3 %; Mean Corpuscular Hemoglobin 29.1 pg (25-34); Mean Corpuscular Hgb Conc 32.9 g/dL (32-36); Mean Corpuscular Volume 88.5 fL (80-100); Mean Platelet Volume 10.7 fL (7.4-10.4); Monocytes # (auto) 1.15 K/uL (0.11-0.59); Monocytes % (auto) 6.5 %; Neutrophils # (auto) 14.93 K/uL (1.4-6.5); Platelet Count 171 K/uL (130-400); RDW Coefficient of Variation 14.6 % (11.5-14.5); RDW Standard Deviation 47.5 fL (36.4-46.3); White Blood Count 17.76 K/uL (4.8-10.8)
[2019-05-21 05:57] LABS: Alanine Aminotransferase 23 U/L (12-78); Albumin Level 1.9 gm/dl (3.4-5.0); Aspartate Aminotransferase 33 U/L (15-37); Bilirubin Direct < 0.1 mg/dl (0-0.2); Blood Urea Nitrogen 13 mg/dl (7-18); Calcium 6.8 mg/dl (8.5-10.1); Carbon Dioxide 21 mmol/L (21-32); Chloride 105 mmol/L (98-107); Creatinine Clr Calc Pharmacy 86.4 ml/min; Est GFR (African American) 80.2; Est GFR (Non-African American) 69.2; Glucose 130 mg/dl (70-99); Potassium 3.9 mmol/L (3.5-5.1); Sodium 134 mmol/L (136-145); Uric Acid 7.7 mg/dl (2.6-7.2)
[2019-05-21 06:00] LABS: Albumin Globulin Ratio 0.6 (0.9-2); Alkaline Phosphatase 79 U/L (45-117); Bilirubin,Total 0.4 mg/dl (0.2-1); Globulin 3.3 gm/dl (2.5-4.0); Total Protein 5.2 gm/dl (6.4-8.2)
--- NOTE | 2019-05-21 07:31 | Obstetrical Progress Note ---
Date of Service May 21, 2019 Assessment & Plan (1) Severe preeclampsia: Patient can come off Magnesium after 12 hours. UOP excellent, labs noted. Edema decreasing. No concerning symptoms this morning. Trimester: third trimester Qualified Code(s): O14.13 - Severe pre-eclampsia, third trimester (2) Full-term PROM with onset of labor within 24 hours of rupture: After Mag is discontinued, move to routine floor and care. Physical Exam Constitutional WD/WN, vitals as above Eyes PERRL, conjunctivae normal, anicteric sclerae Neck normal visual inspection Respiratory normal respiratory effort and able to speak in complete sentences; no respiratory distress and no labored breathing Cardiovascular Rate/Rhythm: regular rate and regular rhythm Extremities: + edema (1+ and improved from prior) Chest (Breasts) Chest: normal inspection of chest Gastrointestinal (Abdomen) Inspection/Auscultation: abdomen normal to inspection Soft, postgravid Neurologic patellar DTR's 2+ bilat, sensation intact Psychiatric A+Ox3, euthymic affect Genitourinary OB Exam Abdomen: + fundal height Fundus: + firm and + relation to umbilicus (fundus just below umbilicus); not tender Results & Data Vital Signs (Past 12 Hours) Vital Signs Temp Pulse Resp BP Pulse Ox 05/21/19 07:23 87 98 05/21/19 07:18 92 H 99 05/21/19 07:13 90 97 05/21/19 07:08 91 H 98 05/21/19 07:03 97 H 98 05/21/19 07:00 90 113/68 05/21/19 06:58 87 94 05/21/19 06:53 87 94 05/21/19 06:52 87 94 05/21/19 06:48 86 95 05/21/19 06:47 88 94 05/21/19 06:43 86 96 05/21/19 06:38 92 H 95 05/21/19 06:34 89 93 05/21/19 06:33 88 95 05/21/19 06:28 91 H 98 05/21/19 06:23 96 H 91 05/21/19 06:18 88 96 05/21/19 06:13 87 95 05/21/19 06:10 90 94 05/21/19 06:08 87 94 05/21/19 06:03 90 93 05/21/19 06:00 18 02/23/20 05:58 90 93 05/21/19 05:53 90 94 05/21/19 05:48 89 95 05/21/19 05:43 89 95 05/21/19 05:38 90 94 05/21/19 05:37 89 94 05/21/19 05:33 89 95 05/21/19 05:32 91 H 94 05/21/19 05:28 89 96 05/21/19 05:23 86 96 05/21/19 05:18 89 97 05/21/19 05:13 97 H 98 05/21/19 05:08 89 95 05/21/19 05:03 82 97 05/21/19 05:00 87 18 133/67 05/21/19 04:58 95 H 99 05/21/19 04:53 90 97 05/21/19 04:48 95 H 98 05/21/19 04:43 97 H 98 05/21/19 04:38 98 H 97 05/21/19 04:33 101 H 96 05/21/19 04:28 96 H 97 05/21/19 04:23 89 97 05/21/19 04:18 92 H 97 05/21/19 04:13 86 98 05/21/19 04:08 89 99 05/21/19 04:03 90 99 05/21/19 04:00 18 05/21/19 03:58 100 H 99 05/21/19 03:53 88 98 05/21/19 03:48 86 99 05/21/19 03:45 98.8 F 18 05/21/19 03:43 90 99 05/21/19 03:42 88 123/73 05/21/19 03:38 87 98 05/21/19 03:33 97 H 98 05/21/19 03:28 89 98 05/21/19 03:10 97 H 95 05/21/19 03:05 94 H 96 05/21/19 03:00 95 H 132/61 97 05/21/19 02:55 95 H 98 05/21/19 02:50 96 H 95 05/21/19 02:45 98 H 96 05/21/19 02:40 91 H 97 05/21/19 02:35 102 H 95 05/21/19 02:33 96 H 94 05/21/19 02:30 95 H 96 05/21/19 02:25 91 H 98 05/21/19 02:20 100 H 96 05/21/19 02:15 99 H 98 05/21/19 02:10 95 H 98 05/21/19 02:05 97 H 97 05/21/19 02:00 95 H 18 96 05/21/19 01:55 97 H 98 05/21/19 01:50 94 H 100 05/21/19 01:45 100 H 100 05/21/19 01:40 98 H 98 05/21/19 01:35 107 H 98 05/21/19 01:30 92 H 95 05/21/19 01:25 98 H 96 05/21/19 01:20 91 H 98 05/21/19 01:15 103 H 99 05/21/19 01:10 99 H 100 05/21/19 01:05 93 H 99 05/21/19 01:00 99 H 18 100 05/21/19 00:56 95 H 135/72 05/21/19 00:55 101 H 100 05/21/19 00:50 107 H 100 05/21/19 00:45 98 H 98 05/21/19 00:40 102 H 100 05/21/19 00:35 107 H 97 05/21/19 00:30 105 H 98 05/21/19 00:25 109 H 99 05/21/19 00:20 94 H 97 05/21/19 00:15 102 H 98 05/21/19 00:10 108 H 97 05/21/19 00:05 110 H 98 05/21/19 00:00 108 H 18 100 05/20/19 23:59 104 H 141/65 H 0220 23:55 105 H 98 20 23:50 104 H 99 0220 23:45 107 H 98 0220 23:44 108 H 134/65 022220 23:40 95 H 98 0220 23:38 96 H 94 0220 23:35 111 H 98 05/20/19 23:30 97 H 98 0220 23:29 97 H 138/68 0220 23:25 109 H 99 0220 23:20 102 H 98 05/20/19 23:15 97.5 F L 101 H 16 100 0222/20 23:14 92 H 141/68 H 0222/20 23:10 104 H 100 0222/20 23:05 101 H 100 02/20 23:00 91 H 98 0222/20 22:59 93 H 136/66 02/20 22:55 96 H 98 0222/20 22:50 95 H 98 02/20 22:45 96 H 98 0220 22:44 96 H 135/66 0222/20 22:40 95 H 99 0222/20 22:35 96 H 100 0222/20 22:30 102 H 100 02/20 22:29 104 H 155/76 H 02/20 22:25 107 H 100 02/20 22:20 109 H 20 152/73 H 100 0222/20 22:15 117 H 98 0222/20 22:10 109 H 100 02/20 22:05 105 H 100 0220 22:00 97 H 100 0222/20 21:59 100 H 20 153/74 H 0222/20 21:55 103 H 100 0222/20 21:50 102 H 100 0222/20 21:45 97 H 100 02/20 21:44 96 H 20 145/70 H 0222/20 21:40 99 H 100 0222/20 21:35 96 H 100 0222/20 21:30 104 H 100 02/20 21:29 106 H 18 153/70 H 02/20 21:25 91 H 99 0222/20 21:15 99 H 98 0222/20 21:14 101 H 20 155/69 H 0222/20 21:10 102 H 99 0222/20 21:05 96 H 98 0222/20 21:00 95 H 18 98 0222/20 20:59 96 H 142/65 H 0222/20 20:55 96 H 97 0222/20 20:50 98 H 99 0222/20 20:45 106 H 160/70 H 100 0222/20 20:40 103 H 99 0222/20 20:35 112 H 98 0222/20 20:32 110 H 89 L 0222/20 20:30 106 H 97 05/20/19 20:29 106 H 129/69 05/20/19 20:25 113 H 77 L 05/20/19 20:24 109 H 88 L 05/20/19 20:20 109 H 98 05/20/19 20:16 108 H 127/81 92 05/20/19 20:15 108 H 97 05/20/19 20:10 107 H 97 05/20/19 20:07 115 H 94 05/20/19 20:05 110 H 97 05/20/19 20:00 112 H 75 L 05/20/19 19:59 109 H 139/63 05/20/19 19:55 114 H 96 05/20/19 19:53 112 H 92 05/20/19 19:50 109 H 98 05/20/19 19:47 110 H 86 L 05/20/19 19:45 106 H 98 05/20/19 19:44 110 H 134/59 L 05/20/19 19:41 113 H 90 05/20/19 19:40 111 H 97 05/20/19 19:35 108 H 98 05/20/19 19:33 110 H 91 05/20/19 19:30 107 H 141/67 H 98 Laboratory Results Laboratory Results - last 24 hr 05/21/19 05/21/19 05:13 05:13 WBC 17.76 H RBC 3.40 L Hgb 9.9 L D Hct 30.1 L MCV 88.5 MCH 29.1 MCHC 32.9 RDW Std Deviation 47.5 H RDW Coeff of Vickie 14.6 H Plt Count 171 MPV 10.7 H Immature Gran % (Auto) 1.0 Neut % (Auto) 84.0 Lymph % (Auto) 8.3 [place] % (Auto) 6.5 Eos % (Auto) 0.1 Baso % (Auto) 0.1 Immature Gran # (Auto) 0.18 H Neut # (Auto) 14.93 H Lymph # (Auto) 1.47 [place] # (Auto) 1.15 H Eos # (Auto) 0.01 Baso # (Auto) 0.02 Sodium 134 L Potassium 3.9 Chloride 105 Carbon Dioxide 21 Anion Gap 8.0 BUN 13 Creatinine 1.05 Est Cr Clr Drug Dosing 86.4 Est GFR ( Amer) 80.2 Est GFR (Non-Af Amer) 69.2 BUN/Creatinine Ratio 12.0 Glucose 130 H Uric Acid 7.7 H Calcium 6.8 L D Total Bilirubin 0.4 Direct Bilirubin < 0.1 AST 33 ALT 23 Alkaline Phosphatase 79 Total Protein 5.2 L D Albumin 1.9 L Globulin 3.3 Albumin/Globulin Ratio 0.6 L Medications Administered Benzocaine (Dermoplast Pain Relieving [facility]) 1 appln EXT PRN PRN PRN Reason: Perineal Discomfort Stop: 06/19/19 21:27 Last Admin: 05/21/19 02:19 Dose: 82.5 appln Documented by: [id number] Lactated Ringer's (Lr) 1,000 mls @ 125 mls/hr IV .Q8H PRN; Protocol PRN Reason: L&D Protocol Stop: 05/21/19 23:00 Last Infusion: 05/21/19 06:32 Dose: 75 mls/hr Documented by: [id number] Infusion: 05/21/19 05:00 Dose: 75 mls/hr Documented by: [id number] Infusion: 05/21/19 04:07 Dose: 75 mls/hr Documented by: [id number] Infusion: 05/21/19 03:49 Dose: 75 mls/hr Documented by: [id number] Infusion: 05/21/19 02:00 Dose: 75 mls/hr Documented by: [id number] Infusion: 05/21/19 01:00 Dose: 75 mls/hr Documented by: [id number] Infusion: 05/21/19 00:04 Dose: 75 mls/hr Documented by: [id number] Infusion: 05/20/19 23:05 Dose: 75 mls/hr Documented by: [id number] Admin: 05/20/19 20:59 Dose: 75 mls/hr Documented by: [id number] Infusion: 05/20/19 12:39 Dose: 75 mls/hr Documented by: [id number] Infusion: 05/20/19 07:06 Dose: 75 mls/hr Documented by: [id number] Infusion: 05/20/19 03:29 Dose: 75 mls/hr Documented by: [id number] Admin: 05/20/19 00:59 Dose: 125 mls/hr Documented by: [id number] Magnesium Sulfate (Magnesium Sulfate / Wtr) 40 gm in 1,000 mls @ 50 mls/hr IV .Q20H NIGEL Stop: 06/19/19 02:59 Last Infusion: 05/21/19 07:01 Dose: 50 mls/hr Documented by: [id number] Cosigned by: [id number] Infusion: 05/21/19 06:00 Dose: 50 mls/hr Documented by: [id number] Cosigned by: [id number] Infusion: 05/21/19 05:00 Dose: 50 mls/hr Documented by: [id number] Cosigned by: [id number] Infusion: 05/21/19 04:00 Dose: 50 mls/hr Documented by: [id number] Cosigned by: [id number] Infusion: 05/21/19 03:15 Dose: 50 mls/hr Documented by: [id number] Cosigned by: [id number] Infusion: 05/21/19 02:00 Dose: 50 mls/hr Documented by: [id number] Cosigned by: [id number] Infusion: 05/21/19 01:00 Dose: 50 mls/hr Documented by: [id number] Cosigned by: [id number] Infusion: 05/21/19 00:04 Dose: 50 mls/hr Documented by: [id number] Cosigned by: [id number] Infusion: 05/20/19 23:05 Dose: 50 mls/hr Documented by: [id number] Cosigned by: [id number] Infusion: 05/20/19 21:54 Dose: 50 mls/hr Documented by: [id number] Cosigned by: [id number] Admin: 05/20/19 20:07 Dose: 50 mls/hr Documented by: [id number] Cosigned by: [id number] Infusion: 05/20/19 20:07 Dose: 50 mls/hr Documented by: [id number] Cosigned by: [id number] Infusion: 05/20/19 16:00 Dose: 50 mls/hr Documented by: [id number] Cosigned by: [id number] Infusion: 05/20/19 07:06 Dose: 50 mls/hr Documented by: [id number] Cosigned by: [id number] Admin: 05/20/19 03:28 Dose: 50 mls/hr Documented by: [id number] Cosigned by: [id number] Ibuprofen (Motrin) 600 mg PO Q4H PRN PRN Reason: Pain/DRUMMOND/Cramping/Fever Stop: 06/19/19 21:27 Last Admin: 05/21/19 02:10 Dose: 600 mg Documented by: [id number]
[2019-05-21] MEDS: PRENATAL VITAMIN 1 TAB PO SCH (08:26)
[2019-05-21] MEDS: DOCUSATE SODIUM 100 MG CAP PO SCH ×2 (08:26→21:04)
[2019-05-21] MEDS ORDERED: Nursing to Pharmacy Communication ONE (09:24)
--- NOTE | 2019-05-21 10:38 | Anesthesia Procedure Note ---
Date of Service May 21, 2019 Anesthesia Post Epidural Note Vital Signs Vital Signs: Temp Pulse Resp BP Pulse Ox 98.8 F 88 18 125/75 100 05/21/19 03:45 05/21/19 10:04 05/21/19 06:00 05/21/19 10:04 05/21/19 10:03 Pain Intensity Bilateral: Pain Intensity: 0 Notes Mental Status: alert / awake / arousable and participated in evaluation Nausea / Vomiting: adequately controlled Pain: adequately controlled Airway Patency, RR, SpO2: stable & adequate BP & HR: stable & adequate Hydration State: stable & adequate Neuraxial Anesthesia: was administered and sensory block is resolving Anesthetic Complications: no major complications apparent and Pt Satisfied with anesthetic care Epidural: Removed without complications and With tip intact
[2019-05-21] MEDS ORDERED: bisacodyL 5 MG TABEC PO SCH (20:00)
--- NOTE | 2019-05-22 05:59 | Obstetrical Progress Note ---
Date of Service <Keith Mo MD - Last Filed: 05/22/19 06:45> May 22, 2019 Assessment & Plan <Keith Mo MD - Last Filed: 05/22/19 06:45> (1) Severe preeclampsia: PPD#2 - continue routine care - severe BPs resolved, with pressures staying systolic 110-135 over last 24hrs - will have follow-up in 1 week for BP check and in 6 weeks for regular follow- up Trimester: third trimester Qualified Code(s): O14.13 - Severe pre-eclampsia, third trimester (2) Full-term PROM with onset of labor within 24 hours of rupture: Subjective <Keith Mo MD - Last Filed: 05/22/19 06:45> Ms. Contreras is a 34 y/o female ; PPD #2 following spontaneous vaginal delivery; doing well this morning; having minimal abdominal cramping/pain; voiding well; tolerating meals overnight; and able to ambulate some; some persistent spotting with intermittent improvement this morning. Review of Systems Constitutional: denies fever; chills; sweats; headache Respiratory: denies shortness of breath, difficulty breathing Cardiac: denies chest pain; palpitations; chest pressure Breast: denies breast pain : denies dysuria Physical Exam <Keith Mo MD - Last Filed: 05/22/19 06:45> General: alert; oriented; no acute distress Cardiac: RRR; no m/g/r Respiratory: CTAB a/p; no wheezes/rales/rhonchi; no increased work of breathing; symmetrical chest rise; no respiratory distress Abdomen: soft; NT/ND; bowel sounds positive Uterus: uterine fundus firm; palpable 2cm below umbilicus Lower extrem: no lower extremity edema or swelling; no deep calf pain; Kendra's sign negative b/l Results & Data <Keith Mo MD - Last Filed: 05/22/19 06:45> Vital Signs (Past 12 Hours) Vital Signs Temp Pulse Resp BP Pulse Ox 05/22/19 03:30 36.8 C 87 18 132/78 98 05/21/19 23:30 37.0 C 92 H 18 121/76 97 05/21/19 19:18 36.7 C 103 H 16 117/75 96 <Linnette Ballard MD - Last Filed: 05/22/19 06:54> Co-Signing Physician Notes I have reviewed the resident's note and examined the patient myself, and agree with the note above. Patient is PPD#2 and s/p mag for severe preeclampsia. BP has normalized. Will plan for 1 week check in office to make sure no increased BP after she goes home. Resident Activity Tracking <Keith Mo MD - Last Filed: 05/22/19 06:45> Resident Involvement: Resident Care Provided Care Provided: Adult [facility]
[2019-05-22] MEDS: IBUPROFEN 600 MG TAB PO PRN (07:58)
[2019-05-22] MEDS: PRENATAL VITAMIN 1 TAB PO SCH (07:59)
[2019-05-22] MEDS: DOCUSATE SODIUM 100 MG CAP PO SCH (07:59)
== END 2019-05-22 16:10 | disposition home or self-care (01) | DRG 807 ==
LOC: OPB 22:00 → 4S1 22:01 → 4S2 05-21 10:51